=== PATIENT | male | born 1990 | race Two or more races ===

== ENCOUNTER 2017-11-28 21:21 | Emergency (ER) | payer SELFPAY | END 2017-11-28 21:30 | disposition left against medical advice (07) | LOC: ER 21:30 | DX: H57.89 Other specified disorders of eye and adnexa (principal); Z53.21 Procedure and treatment not carried out due to patient leaving prior to being seen by health care provider ==

== ENCOUNTER 2017-11-29 10:58 | Emergency (ER) | payer SELFPAY ==
[~2017-11-29] VITALS: Ht 190.5 cm; Wt 118.4 kg
[2017-11-29 12:20] VITALS: BP 135/90
[2017-11-29] MEDS ORDERED: FLUORESCEIN SOD 1 MG TEST STRIP LEFTEYE ONE (12:45)
[2017-11-29] MEDS ORDERED: TETRACAINE HCL 0.5% OPTH(EYE) SOLN 4ML LEFTEYE ONE (12:45)
== END 2017-11-29 13:21 | disposition home or self-care (01) ==
LOC: ER 10:58
DX: S05.02XA Injury of conjunctiva and corneal abrasion without foreign body, left eye, initial encounter (principal); Z91.013 Allergy to seafood; X58.XXXA Exposure to other specified factors, initial encounter; Y93.89 Activity, other specified; Y99.8 Other external cause status; Y92.89 Other specified places as the place of occurrence of the external cause